=== PATIENT | female | born 1955 | race Caucasian/White ===

== ENCOUNTER 2019-08-21 11:01 | Emergency (ER) | payer OTHER ==
[~2019-08-21] VITALS: Ht 165.1 cm; Wt 73.0 kg
[2019-08-21] MEDS ORDERED: ONDANSETRON HCL 4MG/2ML INJ IV STA (11:34)
[2019-08-21] MEDS ORDERED: SODIUM CHLORIDE 0.9% 1,000 ML IV ONE ×2 (11:34→16:09)
[2019-08-21 12:31] LABS: HEMATOCRIT. 42.3 % (36.0-48.0); HEMOGLOBIN. 14.7 g/dL (12.0-16.0); MEAN CORPUSCULAR HEMOGLOBIN 29.4 pg (28.0-32.0); MEAN CORPUSCULAR VOLUME 84.4 fL (81.0-99.0); PLATELET 283 x1000/uL (130-400); RED BLOOD CELL COUNT 5.01 mill/uL (4.2-5.4)
[2019-08-21 12:40] LABS: CHLORIDE 105 mEq/L (98-107)
[2019-08-21 13:53] LABS: PLATELET ESTIMATE NORMAL
[2019-08-21] MEDS ORDERED: IOHEXOL-350 100 ML BOTTLE ONE (15:33)
[2019-08-21 16:12] LABS: CLARITY URINE CLEAR (CLEAR); COLOR URINE YELLOW (YELLOW); KETONES URINE NEGATIVE (NEGATIVE); LEUKOCYTE ESTERASE URINE NEGATIVE (NEGATIVE); NITRITE URINE NEGATIVE (NEGATIVE); OCCULT BLOOD URINE NEGATIVE (NEGATIVE); PH URINE 5.5 (4.5-8.0); PROTEIN URINE NEGATIVE (NEGATIVE); UROBILINOGEN URINE 0.2 E.U./dL (0.2-1.0)
[2019-08-21 17:30] VITALS: BP 121/68
== END 2019-08-21 17:35 | disposition home or self-care (01) ==
LOC: ER 11:01
DX: R07.9 Chest pain, unspecified (principal); H40.9 Unspecified glaucoma
CPT/HCPCS: 36415; 71045; 71275; 80053; 81003; 83880; 84484; 85025; 85379; 93005; 96361; 96374; 99285; J2405; J7030; Q9967